=== PATIENT | female | born 1970 | race Caucasian/White ===

== ENCOUNTER 2019-06-24 17:26 | Emergency (ER) | payer MEDICAID ==
--- NOTE | 2019-06-24 18:45 | EDM.PDOCBH ---
ED HPI GENERAL MEDICAL PROBLEM - General Chief Complaint: Drug or Alcohol Abuse Stated Complaint: ANXIET, ALCOHOL WITHDRAWAL Time Seen by Provider: 06/24/19 18:12 Source of Information: Reports: Patient History Limitations: Reports: No Limitations - History of Present Illness INITIAL COMMENTS - FREE TEXT/NARRATIVE: Presents reporting anxiety and panic. The patient states that she is an active alcoholic and has been so for over 20 years. Lately she is trying to quit drinking on her own. 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 She has a long history of anxiety which has been exacerbated by her alcohol withdrawal. The last couple days she has become very jittery, has shortness of breath, a choking sensation in her throat, scared of being alone even in the bathroom-- she has to leave the door open. She has trouble getting and staying to sleep. She has not worked in the last 2 days. She did drink a pint of alcohol today but usually drinks a fifth. She states that she had a full physical exam including preventive care in February by Dr. Vasquez. All of her labs were in good order at that time except possibly her liver enzymes. Her is also an alcoholic--he accompanies her today. They moved here from [place] to quit their vices and start a new life as productive citizens. left side chest Pain Score (Numeric/FACES): 3 - Related Data Allergies Allergy/AdvReac Type Severity Reaction Status Date / Time No Known Allergies Allergy Verified 06/24/19 17:55 Home Meds: Home Meds . [No Known Home Meds] 06/24/19 [History] Past Medical History BIT GATHERER History: Reports: - Infectious Disease History Infectious Disease History: Reports: Chicken Pox - Past Surgical History Female Surgical History: Reports: Tubal Ligation Social & Family History - Family History Family Medical History: Noncontributory - Tobacco Use Smoking Status *Q: Current Every Day Smoker Years of Tobacco use: 30 Packs/Tins Daily: 1 - Recreational Drug Use Recreational Drug Use: No ED ROS GENERAL - Review of Systems Review Of Systems: Comprehensive ROS is negative, except as noted in HPI. Psychiatric: Reports: Other (Self-harm or suicidal thoughts, plans or previous attempts) ED EXAM, BEHAVIORAL HEALTH - Physical Exam Exam: See Below Exam Limited By: No Limitations General Appearance: Alert Ears: Normal External Exam Nose: Normal Inspection Throat/Mouth: Normal Inspection Head: Atraumatic, Normocephalic Neck: Normal Inspection Respiratory/Chest: No Respiratory Distress, Lungs Clear, Normal Breath Sounds Cardiovascular: Normal Peripheral Pulses, Regular Rate, Rhythm, No Edema Neurological: Alert, Oriented x 3 Psychiatric: Other (Anxious) Skin Exam: Warm, Dry, Intact, Normal color, No rash COURSE, BEHAVIORAL HEALTH COMP - Course Vital Signs: Last Vital Signs Temp 37.0 C 06/24/19 17:56 Pulse 111 H 06/24/19 17:56 Resp 20 06/24/19 17:56 BP 136/93 H 06/24/19 17:56 Pulse Ox 96 06/24/19 17:56 Departure - Departure Time of Disposition: 18:49 Disposition: Home, Self-Care 01 Condition: Good Clinical Impression: Anxiety - Discharge Information Referrals: Maddison Vasquez MD [Primary Care Provider] - Additional Instructions: The following information is given to patients seen in the emergency department who are being discharged to home. This information is to outline your options for follow-up care. We provide all patients seen in our emergency department with a follow-up referral. The need for follow-up, as well as the timing and circumstances, are variable depending upon the specifics of your emergency department visit. If you don't have a primary care physician on staff, we will provide you with a referral. We always advise you to contact your personal physician following an emergency department visit to inform them of the circumstance of the visit and for follow-up with them and/or the need for any referrals to a consulting specialist. The emergency department will also refer you to a specialist when appropriate. This referral assures that you have the opportunity for follow-up care with a specialist. All of these measure are taken in an effort to provide you with optimal care, which includes your follow-up. Under all circumstances we always encourage you to contact your private physician who remains a resource for coordinating your care. When calling for follow-up care, please make the office aware that this follow-up is from your recent emergency room visit. If for any reason you are refused follow-up, please contact the [facility] Emergency Department at and asked to speak to the emergency department charge nurse. 1. You must follow up in primary care to fully evaluate your anxiety and formulate a management plan. Make an appointment with your primary provider soon, if you can not see Dr. Vasquez, see someone else. 2. May take Ativan 0.5mg tab 1/2-1 tab three times daily for the next couple of days until you are seen in primary care. Do NOT drive, operate machinery or DRINK ALCOHOL with this medication. 3. Be aware that sudden discontinuation of alcohol can precipitate delirium, seizures and other serious symptoms. Constant observation during the acute discontinuation phase. 4. Suggest going to work daily to avoid boredom and temptation to drink alcohol. Sepsis Event Note - Evaluation Sepsis Screening Result: No Definite Risk - Focused Exam Vital Signs: Vital Signs Temp Pulse Resp BP Pulse Ox 06/24/19 17:56 37.0 C 111 H 20 136/93 H 96 Date Exam was Performed: 06/24/19 Time Exam was Performed: 18:35
== END 2019-06-24 19:14 | disposition home or self-care (01) ==
LOC: MW.ED 17:26
DX: F41.9 Anxiety disorder, unspecified (principal); Z98.51 Tubal ligation status
CPT/HCPCS: 99283; 99284